=== PATIENT | male | born 1985 | race Two or more races ===

== ENCOUNTER 2025-02-24 22:07 | Emergency (ER) | payer SELFPAY ==
[~2025-02-24] VITALS: Ht 177.8 cm; Wt 90.7 kg
[2025-02-25] MEDS ORDERED: TDAP [DIPH/PERTUSSIS/TET] 0.5 ML VIAL IM ONE ×2 (00:16)
[2025-02-25 00:26] VITALS: BP 137/85; TEMP 98; O2SAT 99
== END 2025-02-25 00:26 | disposition left against medical advice (07) ==
LOC: ER 22:11
DX: S00.03XA Contusion of scalp, initial encounter (principal); Z91.048 Other nonmedicinal substance allergy status; W07.XXXA Fall from chair, initial encounter; Y93.89 Activity, other specified; Y92.89 Other specified places as the place of occurrence of the external cause; Y99.8 Other external cause status
CPT/HCPCS: 70450-TC; 90715